=== PATIENT | female | born 1945 | race Caucasian/White ===

== ENCOUNTER → 2017-07-11 | Emergency (ER) | payer MEDICARE ==
[~2017-07-11] MED LIST: ALIGN PO; ALPR1TAB3 PO; CALC625 PO; CHOL4POW4 PO; DEXI60CA3 PO; DICY20TA10 PO; DILT240C7 PO; ELMI100C PO; ESTR1.5 PO; FENT50DI TD; GABA300 PO; GOODY S PO; HYDR-755 PO; LOMO2.5T PO; LOPE2 PO; MAGN250T13 PO; MORPHINE SULFATE 4 MG/ML INJ IV PUSH ONE; MUSCLE MILK PO; ONDANSETRON HCL 4 MG/2 ML VIAL IVP ONE; OS-CTAB3 PO; OXYB5TAB33 PO; POTA-243 PO; PRED20 PO; PROPOFOL 500 MG/50 ML INJ 50 ML ONE; SERT-129 OR; SODIUM CHLOR 0.9% 1000 ML INJ 1,000 ML IV SCH; SODIUM CHLORIDE 0.9% FLUSH 10 ML FLUSH IV FLUSH PRN; TETR500 PO; TIZA4CAP PO; TOPI100T OR; TRIM300C19 PO; VITA100017 PO; [UNRECOGNIZED DRUG - OTHER] PO; [UNRECOGNIZED DRUG - OTHER] PO
[2017-07-11 11:06] VITALS: BP 140/64; PULSE 68; RESP 22; TEMP 98.8; O2SAT 99
--- NOTE | 2017-07-11 11:35 | PD ---
HPI Chief Complaint: GI Complaint Time Seen by Provider: 11:09 Travel History International Travel<30 days: No Contact w/Intl Traveler<30days: No Traveled to known affect area: No History of Present Illness HPI The patient 72 years old and arrives by EMS. She called EMS who picked her up from her private residence and brought her here. She reports she was discharged from [facility] yesterday following an admission for nausea and vomiting. Location gastrointestinal. No chest pain or shortness of breath. EMS reports normal VS en route here. Appetite decreased. No fever. PFSH Past Medical History Arthritis: Yes Asthma: Yes Autoimmune Disease: Yes Blood Disorders: No Anxiety: Yes (TAKES MEDS FOR) Depression: Yes (TAKES MEDS FOR) Heart Rhythm Problems: Yes (A FIB) Cancer: Yes (SKIN CANCER ON NOSE/REMOVED) Cardiac Catheterization: Yes Cardiovascular Problems: Yes (MVP) High Cholesterol: No Chemotherapy: No Chest Pain: Yes (OCCASSIONAL) Congestive Heart Failure: No COPD: Yes Cerebrovascular Accident: No Diabetes: No Diminished Hearing: No Diverticulitis: Yes Endocrine: No Fibromyalgia: Yes Gastrointestinal Disorders: Yes (IBS, ULCERS, CHRONIC COLITIS/CHRONIC PANCREATIS) GERD: Yes (TAKES MEDS FOR) Glaucoma: No Genitourinary: Yes (interstitial cystitis) Headaches: Yes (OCCASSIONAL) Hepatitis: Yes (has contagious hepatitis ??) Hiatal Hernia: Yes Hypertension: No Immune Disorder: Yes (FIBROMAYLASIA) Kidney Stones: No Musculoskeletal: Yes (FOUR BACK SURGERIES/ARTRITIS) Neurologic: Yes (spinal bifida) Psychiatric: Yes (PANIC ATTACKS) Respiratory: Yes (THORACOTOMY L LUNG 2007) Immunizations Current: No Migraines: Yes (OCCASSIONAL) Myocardial Infarction: No Pancreatitis: Yes (CHRONIC) Radiation Therapy: No Renal Failure: No Seizures: No Sickle Cell Disease: No Sleep Apnea: No Thyroid Disease: No Ulcer: Yes (PUD--TAKES MEDS FOR) PNEUMOCCOCAL Vaccine (Year): 2010 ?: Not Menopausal: Yes : 4 Para: 2 Past Surgical History Abdominal Surgery: Yes (PART OF STOMACH AND SMALL INTESTINE REMOVED DUE TO "BLEEDING ULCER"/APPY) AICD: No Appendectomy: Yes (APPENDECTOMY) Arteriovenous Shunt: No Cardiac Surgery: No Cholecystectomy: No Ear Surgery: No Endocrine Surgery: No Eye Surgery: No Genitourinary Surgery: No Gynecologic Surgery: Yes (PARTIAL HYSTERECTOMY/THEN TOTAL HYSTERECTOMY) Hysterectomy: Yes Insulin Pump: Yes Joint Replacement: No Neurologic Surgery: Yes (SPINAL FUSIONS X4) Oral Surgery: Yes (JAW SURGERY/SINUS SURGERY) Pacemaker: No Thoracic Surgery: No Other Surgery: Yes Social History Alcohol Use: No Tobacco Use: Yes (04/24 PPD) Substance Use: No Allergies-Medications (Allergen,Severity, Reaction): Coded Allergies: carisoprodol (Unverified Allergy, Severe, "PARALYZES ME", 12/05/16) penicillin G (Unverified Allergy, Severe, "RASH", 12/05/16) Reported Meds & Prescriptions Reported Meds & Active Scripts Active Deltasone 20 Mg Tab (Prednisone) 20 Mg Tab 20 Mg PO DAILY 5 Days Fentanyl 50 Mcg/Hr Dis 50 Mcg TD Q3D Reported [Muscle Milk] 1 Dose PO DAILY [Activia] 1 Tab PO DAILY Oscal 500/Vitamin D 200 (Calcium/Vitamin D) 1 Tab Tab 1 Tab PO BID Cholestyramine (Cholestyramine Resin) 4 Gm Pow 4 Gm PO DIRECTED 2-3 TIMES PER DAY Neurontin (Gabapentin) 300 Mg Cap 300 Mg PO TID [Goody's Powder] 780 Mg PO DIRECTED [Bc Powders] 845 Mg PO QID Imodium (Loperamide HCl) 2 Mg Cap 2 Mg PO Q4HPRN Magnesium 250 Mg Tab 250 Mg PO DAILY Vitamin C (Ascorbic Acid) 1,000 Mg Tab 1,000 Mg PO DAILY [Align] 4 Mg PO DAILY Fentanyl 50 Mcg/Hr Dis 50 Mcg TD Q72HRS Fiber Con (Calcium Polycarbophil) 625 Mg Tab 625 Mg PO BID Alprazolam 1 Mg Tab 1 Mg PO TID Sertraline Hcl (Sertraline HCl) 100 Mg Tab 100 Mg OR BID Dicyclomine Hcl (Dicyclomine HCl) 20 Mg Tab 20 Mg PO QID Estropipate 1.5 Mg Tab 1.5 Mg PO BID Achromycin V (Tetracycline HCl) 500 Mg Cap 500 Mg PO DAILY Ditropan (Oxybutynin Chloride) 5 Mg Tab 5 Mg PO TID Dexilant (Dexlansoprazole) 60 Mg Cap 60 Mg PO DAILY Diphenoxylate/Atropine (Diphenoxylate HCl) 2.5 Mg Tab 2.5 Mg PO EIGHT TIMES DAILY Hydroxyzine Hcl (Hydroxyzine HCl) 10 Mg Tab 10 Mg PO BID Tizanidine Hcl (Tizanidine HCl) 4 Mg Tab 8 Mg PO HS Diltiazem Hcl Er (Diltiazem HCl) 240 Mg Cap 240 Mg PO DAILY Topiramate 100 Mg Tab 100 Mg OR BID Elmiron (Pentosan Polysulfate Sodium) 100 Mg Cap 100 Mg PO TID K-Dur (Potassium Chloride) 10 Meq Tabcr 30 Meq PO DAILY Trimethobenzamide Hcl (Trimethobenzamide HCl) 300 Mg Cap 300 Mg PO QID Review of Systems Except as stated in HPI: all other systems reviewed are Neg General / Constitutional: No: Fever HENT: No: Lightheadedness Cardiovascular: No: Chest Pain or Discomfort Respiratory: No: Shortness of Breath Gastrointestinal: Positive: Nausea, Vomiting, Abdominal Pain Physical Exam Narrative GENERAL: 72-year-old female pleasant well-nourished well-developed Vital Signs Date Time Temp Pulse Resp B/P (MAP) Pulse Ox O2 Delivery O2 Flow Rate FiO2 07/11/17 11:06 98.8 68 22 140/64 (89) 99 SKIN: Warm and dry. HEAD: Atraumatic. Normocephalic. EYES: Pupils equal and round. No scleral icterus. No injection or drainage. ENT: No nasal bleeding or discharge. Mucous membranes pink and moist. NECK: Trachea midline. No JVD. CARDIOVASCULAR: Regular rate and rhythm. RESPIRATORY: No accessory muscle use. Clear to auscultation. Breath sounds equal bilaterally. GASTROINTESTINAL: The abdomen is soft. There is nonspecific guarding. MUSCULOSKELETAL: Extremities without clubbing, cyanosis, or edema. No obvious deformities. NEUROLOGICAL: Patient is awake and alert. She answers questions appropriately although at times does not offer any response. The cranial nerves are normal. The patient is moving all extremities normally. PSYCHIATRIC: Patient refuses IV access. Data Data Last Documented VS Vital Signs Date Time Temp Pulse Resp B/P (MAP) Pulse Ox O2 Delivery O2 Flow Rate FiO2 07/11/17 11:06 98.8 68 22 140/64 (89) 99 Orders Orders Iv Access Insert/Monitor (07/11/17 11:09) Ecg Monitoring (07/11/17 11:09) Oximetry (07/11/17 11:09) Morphine Inj (Morphine Inj) (07/11/17 11:15) Ondansetron Inj (Zofran Inj) (07/11/17 11:15) Sodium Chlor 0.9% 1000 Ml Inj (Ns 1000 M (07/11/17 11:09) Sodium Chloride 0.9% Flush (Ns Flush) (07/11/17 11:15) Ed Discharge Order (07/11/17 11:35) MDM Medical Decision Making Medical Screen Exam Complete: Yes Emergency Medical Condition: Yes Medical Record Reviewed: Yes Differential Diagnosis Gastritis, pancreatitis, appendicitis, acute cholecystitis, ascending cholangitis, AAA, perforated viscous, mesenteric ischemia, hepatitis, cystitis, hydronephrosis/hydroureter/nephroureter calculus, mesenteric adenitis, biliary colic Narrative Course Unfortunately the patient has chosen to refuse blood work and testing here. At 11:30 AM I discussed with the patient the options which include leaving AGAINST MEDICAL ADVICE or proceeding with an appropriate workup and the patient elected to leave AGAINST MEDICAL ADVICE. Pt demonstrates capacity for independent decision making. Pt can understand risks and alternatives of discharge AMA. Pt verbalizes understanding she can return anytime if needed. Diagnosis Primary Impression: Left against medical advice Referrals: Primary Care Physician 2 days Disposition: 07 AGAINST MEDICAL ADVICE Condition: Stable Xavi Garcia MD Jul 11, 2017 11:35
== END | disposition left against medical advice (07) ==
LOC: PHED 11:04
DX: Z53.29 Procedure and treatment not carried out because of patient's decision for other reasons (principal); J44.9 Chronic obstructive pulmonary disease, unspecified; F32.9 Major depressive disorder, single episode, unspecified; I48.91 Unspecified atrial fibrillation; M79.7 Fibromyalgia; F41.0 Panic disorder [episodic paroxysmal anxiety]; Z88.0 Allergy status to penicillin; Z85.828 Personal history of other malignant neoplasm of skin
CPT/HCPCS: 99281